=== PATIENT | female | born 1940 | race Asian ===

== ENCOUNTER 2019-12-08 08:43 | Emergency (ER) | payer MEDICARE, SELFPAY ==
[2019-12-08 08:59] VITALS: BP 145/73; PULSE 83; RESP 16; TEMP 36.7; O2SAT 100; BMI 19.5
--- NOTE | 2019-12-08 09:05 | DI.RAD.S_ITS ---
PROCEDURE: XR ANKLE RT MIN 3V INDICATIONS: ankle injury TECHNIQUE: 3 views of the ankle were acquired. COMPARISON: None. FINDINGS: Bones: No acute appearing fractures or dislocations. Remote appearing, well corticated fracture fragments are seen distal to the medial and lateral malleoli. Ankle mortise is normally aligned. No suspicious bony lesions. The talar dome demonstrates no lulu abnormality. Age-appropriate bony degenerative changes are seen. Plantar and Achilles calcaneal spurs are seen. Soft tissues: Medial soft tissue swelling is seen. IMPRESSION: Soft tissue swelling is seen, without an acute abnormality seen by plain film. If there is point tenderness (or other clinical suspicion for a fracture not seen on these images) then a dedicated CT or a short-term followup plain film series could be considered for further evaluation, as clinically appropriate. Degenerative changes are seen, including plantar and Achilles calcaneal spurs. Dictated by: Gilmar Taylor M.D. on 12/08/2019 at 8:28 Approved by: Gilmar Taylor M.D. on 12/08/2019 at 8:30
--- NOTE | 2019-12-08 09:13 | ED.LOWEXIN ---
HPI - Extremity Injury (Lower) General Chief Complaint: Extremity Injury, Lower Stated Complaint: PAIN IN RT ANKLE/SWELLING Time Seen by Provider: 12/08/19 08:59 Source: patient and family Mode of arrival: Ambulatory History of Present Illness HPI Narrative: Patient is a 79-year-old female who presents with right ankle pain and swelling. It has been ongoing for last 3 days she is unsure of exact injury but thinks she may have twisted it. The pain has gotten quite severe and she is unable to ambulate now. She has taken Tylenol for pain relief but has not gotten any. complaint: ankle injury Related Data Home Medications Medication Instructions Recorded Confirmed Co Q-10 12/08/19 Allergies Allergy/AdvReac Type Severity Reaction Status Date / Time No Known Drug Allergies Allergy Verified 12/08/19 09:19 Review of Systems Review of Systems Narrative: GENERAL: Denies chills,fever HEENT: Denies throat pain RESPIRATORY: Denies dyspnea, cough, wheezing CARDIOVASCULAR: Denies chest pain, palpitations GASTROINTESTINAL: Denies nausea, vomiting MUSCULOSKELETAL: See HPI SKIN: No rash, no laceration, no pruritus NEUROLOGIC: Denies weakness, dizziness, headache, numbness 8 point review of systems is negative except for those stated above and HPI Patient History Social History Smoking Status: Former smoker Smoking Status: Former smoker alcohol intake frequency: a few times a month Substance Use Type: does not use Exam Initial Vital Signs Initial Vital Signs: Vital Signs Temperature 98.1 F 12/08/19 08:59 Pulse Rate 83 12/08/19 08:59 Respiratory Rate 16 12/08/19 08:59 Blood Pressure 145/73 H 12/08/19 08:59 Pulse Oximetry 100 12/08/19 08:59 GENERAL: Thin elderly female CARDIOVASCULAR: peripheral pulses in tact, cap refill <2 sec RESPIRATORY: No respiratory distress, speaks in full sentences without difficulty EXTREMITIES: Normal range of motion, no clubbing or edema. Neurovascularly intact Right lower extremity swelling over ankle able to flex and extend distal pedal pulse intact no erythema NEUROLOGICAL: Cranial nerves II through XII grossly intact. Normal gait and speech. SKIN: Warm, dry, no petechiae, no rashes or lesions. Course Orders Ordered: Discontinued Medications Ketorolac Tromethamine (Toradol) 30 mg IM NOW ONE Stop: 12/08/19 09:14 Last Admin: 12/08/19 09:23 Dose: 30 mg Documented by: LLOYD Vital Signs Vital signs: Vital Signs - 8 hr 12/08/19 08:59 Temperature 98.1 F Pulse Rate 83 Respiratory Rate 16 Blood Pressure 145/73 H Pulse Oximetry 100 MDM - Extremity Injury (Lower) Imaging Data Extremity x-ray #1: Radiologist's Impression: PROCEDURE: XR ANKLE RT MIN 3V INDICATIONS: ankle injury TECHNIQUE: 3 views of the ankle were acquired. COMPARISON: None. FINDINGS: Bones: No acute appearing fractures or dislocations. Remote appearing, well corticated fracture fragments are seen distal to the medial and lateral malleoli. Ankle mortise is normally aligned. No suspicious bony lesions. The talar dome demonstrates no lulu abnormality. Age-appropriate bony degenerative changes are seen. Plantar and Achilles calcaneal spurs are seen. Soft tissues: Medial soft tissue swelling is seen. IMPRESSION: Soft tissue swelling is seen, without an acute abnormality seen by plain film. If there is point tenderness (or other clinical suspicion for a fracture not seen on these images) then a dedicated CT or a short-term followup plain film series could be considered for further evaluation, as clinically appropriate. Degenerative changes are seen, including plantar and Achilles calcaneal spurs. Dictated by: Gilmar Taylor M.D. on 12/08/2019 at 8:28 Approved by: Gilmar Taylor M.D. on 12/08/2019 at 8:30 Discharge Plan Departure Patient Disposition: Home Clinical Impression: Right ankle sprain Qualifiers: Encounter type: initial encounter Involved ligament of ankle: other ligament Qualified Code(s): S93.491A - Sprain of other ligament of right ankle, initial encounter Discharge Date/Time: 12/08/19 10:08 Instructions: DI for Ankle Sprain Activity Restrictions/Additional Instructions: *You have been diagnosed with right ankle sprain *What to do: elevate, ice 20-30 minutes at time, use walker as needed to get around *Continue to take medications as directed motrin 600mg every 6 hours if needed for pain *Follow up with your primary care provider in 2-3 days *Return to ER if you should have worsening pain, redness, weaknesss, or any new, worsening or concerning symptoms Prescriptions: No Action Co Q-10 RF: 0 Referrals: Nichole Benoit MD [Primary Care Provider] -
[2019-12-08] MEDS: KETOROLAC 60 MG/2 ML VIAL 30 MG IM (09:23)
--- NOTE | 2019-12-08 10:07 | PC.NURSE ---
Patient given a walker to take home.
== END 2019-12-08 10:08 | disposition home or self-care (01) ==
PROVIDERS: Emergency Provider Emergency Medicine; Family Provider Internal Medicine; PCP Internal Medicine
DX: S93.491A Sprain of other ligament of right ankle, initial encounter (principal)
CPT/HCPCS: 73610; 96372; 99283; J1885

== ENCOUNTER 2019-12-10 16:37 | Emergency (ER) | payer MEDICARE, SELFPAY ==
[2019-12-10 16:47] VITALS: BP 151/70; PULSE 93; RESP 17; TEMP 38.8; O2SAT 97; BMI 19.5
[2019-12-10 18:16] VITALS: PULSE 92; O2SAT 95
[2019-12-10 18:28] LABS: Add Manual Diff / Slide Review NO; Basophils Absolute Auto 0 /uL (0-100); Basophils Percent Auto 0.4 % (0-2); Eosinophils Absolute Auto 0 /uL (0-450); Eosinophils Percent Auto 0.2 % (2-4); Hematocrit 32.9 % (36-46); Hemoglobin 11.1 g/dL (12.0-16.0); Lymphocytes Absolute Auto 1200 /uL (1100-4500); Lymphocytes Percent Auto 12.3 % (25-40); Mean Corpuscular HGB Conc 33.6 % (30-36); Mean Corpuscular Hemoglobin 33.1 PG (26-34); Mean Corpuscular Volume 98.4 fL (80-100); Monocytes Absolute Auto 700 /uL (0-900); Monocytes Percent Auto 7.8 % (3-14); Neutrophils Absolute Auto 7600 /uL (1500-7000); Neutrophils Percent Auto 79.3 % (50-75); Platelet Count 288 X10^3/uL (150-400); Red Blood Cell Count 3.34 X10^6/uL (4.0-5.2); Red Cell Distribution Width 13.1 % (11.6-14.8); White Blood Cell Count 9.6 X10^3/uL (4.5-11.0)
[2019-12-10 18:30] VITALS: BP 159/71; PULSE 83; O2SAT 99
[2019-12-10 18:34] LABS: Lactate (Lactic Acid) 1.2 mmol/L (0.7-2.1)
[2019-12-10 18:36] LABS: Alanine Aminotransferase 19 IU/L (<35); Albumin 4.1 g/dL (3.5-5.0); Alkaline Phosphatase 146 U/L (38-126); Aspartate Aminotransferase 40 IU/L (14-36); BUN Creatinine Ratio 18.9 (6-22); Bilirubin Total 0.9 mg/dL (0.2-1.3); Blood Urea Nitrogen 17 mg/dL (7-17); Calcium 9.1 mg/dL (8.4-10.2); Carbon Dioxide 25 mmol/L (22-32); Chloride 103 mmol/L (98-107); Estimated Glomerular Filt Rate > 60.0 mL/min (>60); Glucose 130 mg/dL (80-110); HEMOLYSIS 22 (0-50); Potassium 4.2 mmol/L (3.4-5.1); Sodium 137 mmol/L (137-145); Total Protein 8.1 g/dL (6.3-8.2); Uric Acid 8.3 mg/dL (2.5-6.2)
[2019-12-10] MEDS: KETOROLAC 60 MG/2 ML VIAL 15 MG IV (18:53)
[2019-12-10] MEDS: SODIUM CHLORIDE 0.9% 500 ML 1000 ML IV (18:53)
[2019-12-10 18:58] LABS: Erythrocyte Sedimentation Rate 66 MM/HR (0-20)
[2019-12-10 19:07] LABS: C-Reactive Protein Quant 13.1 mg/dL (<1.0)
--- NOTE | 2019-12-10 19:12 | ED.EXTPRO ---
HPI - Extremity Problem <Xu Lam [facility] - Last Filed: 12/10/19 19:43> General Chief complaint: Extremity Problem,Nontraumatic Stated complaint: 12/09 Ssprain rt ankle/not getting better/ high tem Time Seen by Provider: 12/10/19 18:09 Source: patient and family Mode of arrival: Wheelchair Limitations: no limitations History of Present Illness HPI Narrative: This is a 79-year-old female, former smoker, has history of gout, arthritis and osteoporosis presents to ED with significant other with chief complain of right ankle pain, swelling, warmth. Patient was here in ED 2 days ago with same chief complain and was evaluated and had x-ray test done. Patient was discharged to home with ankle sprain since there is no dislocation were appreciated at that time. Patient has history of gout and currently is not taking allopurinol for last 2 years after it ran out. Patient denies having gout attacks in her ankle in the past. Patient reports difficult time walking on affected foot. Patient reports feeling hot and chills at home. She denies changes in diet and usually she has rice and fish and denies having alcohol drinks. Patient reports she has an appointment with Dr. Benoit primary care physician this coming . Related Data Home Medications Medication Instructions Recorded Confirmed Co Q-10 12/08/19 allopurinol 12/10/19 Previous Rx's Medication Instructions Recorded colchicine 0.6 mg PO .once to BID PRN #14 cap 12/10/19 Allergies Allergy/AdvReac Type Severity Reaction Status Date / Time No Known Drug Allergies Allergy Verified 12/08/19 09:19 Review of Systems <Xu Lam [facility] - Last Filed: 12/10/19 19:43> Review of Systems Narrative: General: Denies fever, chills, fatigue, malaise, sweats. HEENT: Denies sinus pain, ear pain, sore throat, difficulty swallowing, dizziness. Respiratory: Denies dyspnea, cough, wheezing, hemoptysis, sputum. Cardiovascular: Denies chest pain, palpitations, orthopnea, edema. Gastrointestinal: Denies nausea, vomiting, abdominal pain, diarrhea, constipation, melena. : Denies dysuria, frequency, incontinence, hematuria, urinary retention. Musculoskeletal: Denies weakness, joint pain or bony pain. Skin: Denies rash, skin lesions, or other. Neurologic: Denies weakness, headache, numbness, change in speech, confusion, seizures, incoordination. Psychiatric: No concerning psychosocial issues. 12-point review of systems is negative except for those stated above. Patient History <SALVADOR Milligan - Last Filed: 12/10/19 19:43> Medical History Arthritis (Acute) Gout (Acute) Osteoporosis (Acute) Surgical History History of cataract surgery (Acute) Social History Smoking Status: Former smoker Smoking Status: Former smoker alcohol intake frequency: a few times a month Substance Use Type: does not use Exam <SALVADOR Milligan - Last Filed: 12/10/19 19:43> Narrative Exam Narrative: GEN: Alert, oriented x 3, well appearing and nourished, and moderate distress. Head: Normal cephalic, atraumatic. No scalp or temporal tenderness, palpable mass or rash. EYES: Pupils are equal, round, and reactive to light and accommodation. Extraocular muscles are intact bilaterally. There is no subconjunctival hemorrhage, exudate and sclera non-icteric. ENT: Hearing grossly intact. Nose without bleeding, purulent discharge or deviation. Facial sinuses nontender to palpate. Mucous membrane moist, no mucosal lesion. Throat without erythema, tonsillar hypertrophy or exudate. Uvula in midline, airway patent. Neck: Trachea in midline. No JVD, non-tender without lymphadenopathy. No masses or thyroid megaly. Supple, non-tender and no meningeal signs. CARDIAC: Normal regular rate and rhythm without murmurs, gallops, or rubs. No chest wall tenderness. No peripheral edema, cyanosis or pallor. Capillary refill is less than 2 seconds. RESPIRATORY: Lungs are clear to auscultate bilaterally. No cough, wheezes, rales, or rhonchi. No stridor, respiratory distress, increase work of breathing, or accessary muscle used. ABD: Abdomen soft, nontender and non-distended. No guarding or rebound tenderness to palpate. Bowel sounds are normal in all 4 quadrants. There is no palpable masses or organomegaly. SKIN: Warmth and redness to right ankle and foot. Warm, dry, normal color for patient. BACK: Nontender without deformity or crepitance. No flank tenderness. NEUROLOGICAL: Alert and oriented to place, time and person. Sensation and motor function intact bilaterally. No facial droops, dysphasia. PSYCHIATRIC: Good judgement and reason, without hallucinations, abnormal affect or abnormal behaviors during the examination. Patient is not suicidal. Initial Vital Signs Initial Vital Signs: Vital Signs Temperature 102 F H 12/10/19 16:47 Pulse Rate 93 H 12/10/19 16:47 Respiratory Rate 17 12/10/19 16:47 Blood Pressure 151/70 H 12/10/19 16:47 Pulse Oximetry 97 12/10/19 16:47 Extrem Right lower extremity: knee Details: normal to inspection; no tenderness and no swelling, lower leg Details: normal to inspection; no erythema and no tenderness, ankle Details: abnormal to inspection, tenderness, swelling, warmth and other (erythema) and foot Details: normal capillary refill, abnormal to inspection, tenderness, toes with normal ROM, warmth, edema, vascular exam Details: dorsalis pedis pulse present and normal capillary refill, motor-sensory exam Details: light-touch normal and other (erythema to foot and ankle); no laceration and no puncture wound <Quincy Holland MD - Last Filed: 12/11/19 03:57> Initial Vital Signs Initial Vital Signs: Vital Signs Temperature 102 F H 12/10/19 16:47 Pulse Rate 93 H 12/10/19 16:47 Respiratory Rate 17 12/10/19 16:47 Blood Pressure 151/70 H 12/10/19 16:47 Pulse Oximetry 97 12/10/19 16:47 Scores <KAYLEE MilliganP - Last Filed: 12/10/19 19:43> GCS [place] coma scale eye opening: Spontaneous [place] coma scale verbal response: Orientated [place] coma scale motor response: [place] commands [place] coma scale total score: 15 qSOFA Altered Mental Status (GCS <15): No Respiratory rate greater than/equal to 22: Yes Systolic blood pressure less than or equal to 100: No qSOFA Total: 1 0-1 Not High Risk 1-3 High risk Course <SALVADOR Milligan - Last Filed: 12/10/19 19:43> Orders Ordered: Discontinued Medications Colchicine (Colcrys) 1.2 mg PO NOW ONE Stop: 12/10/19 19:12 Last Admin: 12/10/19 19:26 Dose: 1.2 mg Documented by: ROCIO Sodium Chloride (Normal Saline 0.9%) 500 mls @ 1,000 mls/hr IV BOLUS ONE Stop: 12/10/19 18:50 Last Admin: 12/10/19 18:53 Dose: 1,000 mls/hr Documented by: ROCIO Ketorolac Tromethamine (Toradol) 15 mg IV NOW ONE Stop: 12/10/19 18:50 Last Admin: 12/10/19 18:53 Dose: 15 mg Documented by: ROCIO Vital Signs Vital signs: Vital Signs - 8 hr 12/10/19 16:47 12/10/19 18:16 12/10/19 18:30 Temperature 102 F H Pulse Rate 93 H 92 H 83 Respiratory Rate 17 Blood Pressure 151/70 H 159/71 H Pulse Oximetry 97 95 99 <Quincy Holland MD - Last Filed: 12/11/19 03:57> Orders Ordered: Discontinued Medications Colchicine (Colcrys) 1.2 mg PO NOW ONE Stop: 12/10/19 19:12 Last Admin: 12/10/19 19:26 Dose: 1.2 mg Documented by: ROCIO Sodium Chloride (Normal Saline 0.9%) 500 mls @ 1,000 mls/hr IV BOLUS ONE Stop: 12/10/19 18:50 Last Admin: 12/10/19 18:53 Dose: 1,000 mls/hr Documented by: ROCIO Ketorolac Tromethamine (Toradol) 15 mg IV NOW ONE Stop: 12/10/19 18:50 Last Admin: 12/10/19 18:53 Dose: 15 mg Documented by: ROCIO Vital Signs Vital signs: Vital Signs - 8 hr 12/10/19 16:47 12/10/19 18:16 12/10/19 18:30 Temperature 102 F H Pulse Rate 93 H 92 H 83 Respiratory Rate 17 Blood Pressure 151/70 H 159/71 H Pulse Oximetry 97 95 99 MDM - Extremity (Nontraumatic) <KAYLEE MilliganP - Last Filed: 12/10/19 19:43> Differential Diagnosis Differential diagnosis: Likely gout, cellulitis, deep vein thrombosis of lower extremity and other (Sprain, septic arthritis) Medical Records Attestation: I reviewed the patient's medical records. Lab Data Attestation: I reviewed the patient's lab results. Result diagrams: 12/10/19 17:30 12/10/19 17:30 Labs: Lab Results 12/10/19 12/10/19 12/10/19 Range/Units 17:30 17:30 17:30 WBC 9.6 (4.5-11.0) X10^3/uL RBC 3.34 L (4.0-5.2) X10^6/uL Hgb 11.1 L (12.0-16.0) g/dL Hct 32.9 L (36-46) % MCV 98.4 (80-100) fL MCH 33.1 (26-34) PG MCHC 33.6 (30-36) % RDW 13.1 (11.6-14.8) % Plt Count 288 (150-400) X10^3/uL Neut % (Auto) 79.3 H (50-75) % Lymph % (Auto) 12.3 L (25-40) % [place] % (Auto) 7.8 (3-14) % Eos % (Auto) 0.2 L (2-4) % Baso % (Auto) 0.4 (0-2) % Neut # (Auto) 7600 H (8305-3884) /uL Lymph # (Auto) 1200 (8220-4531) /uL [place] # (Auto) 700 (0-900) /uL Eos # (Auto) 0 (0-450) /uL Baso # (Auto) 0 (0-100) /uL ESR 66 H (0-20) MM/HR Sodium 137 (137-145) mmol/L Potassium 4.2 (3.4-5.1) mmol/L Chloride 103 (98-107) mmol/L Carbon Dioxide 25 (22-32) mmol/L BUN 17 (7-17) mg/dL Creatinine 0.90 (0.52-1.04) mg/dL Estimated GFR > 60.0 (>60) mL/min BUN/Creatinine Ratio 18.9 (6-22) Glucose 130 H (80-110) mg/dL Lactate 1.2 (0.7-2.1) mmol/L Uric Acid 8.3 H (2.5-6.2) mg/dL Calcium 9.1 (8.4-10.2) mg/dL Total Bilirubin 0.9 (0.2-1.3) mg/dL AST 40 H (14-36) IU/L ALT 19 (<35) IU/L Alkaline Phosphatase 146 H (38-126) U/L C-Reactive Protein 13.1 H (<1.0) mg/dL Total Protein 8.1 (6.3-8.2) g/dL Albumin 4.1 (3.5-5.0) g/dL Globulin 4.0 (1.7-4.1) g/dL Albumin/Globulin Ratio 1.0 (1.0-2.8) MDM Narrative Medical decision making narrative: This is a 79-year-old female return to ED with worsening right ankle pain with swelling and warmth after she was evaluated 2 days ago and was discharged to home with ankle sprain diagnosis. During triage it was noted elevated temperature of 102.0 F and during my exam noted patient had slight tachypnea. qSOFA score 1. Right ankle and foot appears to be edematous, warmth and erythematous with exquisite tenderness to palpate. Normal white count of 9.6 with slight neutrophil elevation of 79.3%. Normal lactic acid. Normal kidney function. Uric acid is elevated to 8.3. CRP is elevated to 13.1 with ESR of 66. Acute gout diagnosis rule indicates 5 points (31.2% prevalence of gout). Patient's temperature has improved before leaving emergency room. Patient was medicated with Ketolac, IV fluid, and colchicine 1.2 mg and discharged to home with additional colchicine. Patient's significant reports that had not refilled allopurinol last 2 years after it had ran out and she is fish and fish sauce frequently. Return precautions were discussed with patient and significant other and advised to follow-up with Dr. Benoit as scheduled this and to use [place] wrap and walker for ambulation. Patient verbalized understanding and agreement with treatment plan. <Quincy Holland MD - Last Filed: 12/11/19 03:57> Lab Data Labs: Lab Results 12/10/19 12/10/19 12/10/19 Range/Units 17:30 17:30 17:30 WBC 9.6 (4.5-11.0) X10^3/uL RBC 3.34 L (4.0-5.2) X10^6/uL Hgb 11.1 L (12.0-16.0) g/dL Hct 32.9 L (36-46) % MCV 98.4 (80-100) fL MCH 33.1 (26-34) PG MCHC 33.6 (30-36) % RDW 13.1 (11.6-14.8) % Plt Count 288 (150-400) X10^3/uL Neut % (Auto) 79.3 H (50-75) % Lymph % (Auto) 12.3 L (25-40) % [place] % (Auto) 7.8 (3-14) % Eos % (Auto) 0.2 L (2-4) % Baso % (Auto) 0.4 (0-2) % Neut # (Auto) 7600 H (1796-4696) /uL Lymph # (Auto) 1200 (9305-6182) /uL [place] # (Auto) 700 (0-900) /uL Eos # (Auto) 0 (0-450) /uL Baso # (Auto) 0 (0-100) /uL ESR 66 H (0-20) MM/HR Sodium 137 (137-145) mmol/L Potassium 4.2 (3.4-5.1) mmol/L Chloride 103 (98-107) mmol/L Carbon Dioxide 25 (22-32) mmol/L BUN 17 (7-17) mg/dL Creatinine 0.90 (0.52-1.04) mg/dL Estimated GFR > 60.0 (>60) mL/min BUN/Creatinine Ratio 18.9 (6-22) Glucose 130 H (80-110) mg/dL Lactate 1.2 (0.7-2.1) mmol/L Uric Acid 8.3 H (2.5-6.2) mg/dL Calcium 9.1 (8.4-10.2) mg/dL Total Bilirubin 0.9 (0.2-1.3) mg/dL AST 40 H (14-36) IU/L ALT 19 (<35) IU/L Alkaline Phosphatase 146 H (38-126) U/L C-Reactive Protein 13.1 H (<1.0) mg/dL Total Protein 8.1 (6.3-8.2) g/dL Albumin 4.1 (3.5-5.0) g/dL Globulin 4.0 (1.7-4.1) g/dL Albumin/Globulin Ratio 1.0 (1.0-2.8) Discharge Plan Departure Patient Disposition: Home Clinical Impression: Gout Qualifiers: Gout site: ankle Gout etiology: unspecified cause Chronicity: acute Laterality: right Qualified Code(s): M10.9 - Gout, unspecified Acute ankle pain Qualifiers: Laterality: right Qualified Code(s): M25.571 - Pain in right ankle and joints of right foot Discharge Date/Time: 12/10/19 19:52 Instructions: DI for Gout, DI for Ankle Pain Activity Restrictions/Additional Instructions: You have been diagnosed with [right ankle pain likely from gout attack. X-ray test that was done 2 days ago does not show acute findings. Today's blood test shows elevated uric acid of 8.3. No elevation in white count or lactate. Elevated ESR and CRP. Your received IV Toradol and colchicine in ED with IV fluid.]. What to do: *Take your medications as directed. Please use walker for ambulation and [place] wrap as needed for pain on her ankle that was provided to you 2 days ago. *Follow up with your primary care provider in 2-3 days, call for an appointment. Let them know you were seen in the ED and that we asked you to be seen in follow up. *Return to ED if you have any new, worsening, or concerning symptoms, such as [fever, chills, nausea, vomiting, chest pain, breathing difficulty, unable to tolerate fluids, worsening pain or any acute concerns]. Prescriptions: New colchicine 0.6 mg capsule 0.6 mg PO .once to BID PRN (Reason: gout pain) Qty: 14 RF: 0 No Action Co Q-10 RF: 0 allopurinol RF: 0 Referrals: Nichole Benoit MD [Primary Care Provider] - <Quincy Holland MD - Last Filed: 12/11/19 03:57> Cosign ED Attending Cosignature Attestation: I was immediately available in the department for consultation. This documentation has been reviewed and I agree with assessment and plan. Supervised by Quincy Holland MD
[2019-12-10] MEDS: COLCHICINE 0.6 MG TABLET 1.2 MG PO (19:26)
[2019-12-10 19:51] VITALS: BP 142/90; PULSE 89; RESP 18; TEMP 36.6; O2SAT 98
== END 2019-12-10 19:52 | disposition home or self-care (01) ==
PROVIDERS: Emergency Provider Nurse Practitioner Family; Family Provider Internal Medicine; PCP Internal Medicine
DX: M10.9 Gout, unspecified (principal); M25.571 Pain in right ankle and joints of right foot; R50.9 Fever, unspecified
CPT/HCPCS: 36415; 80053; 83605; 84550; 85025; 85651; 86140; 96374; 99284; J1885

== ENCOUNTER → 2019-12-18 14:33 | Outpatient (CLI) | payer MEDICARE, SELFPAY | PROVIDERS: Family Provider Internal Medicine; PCP Internal Medicine; Referring Provider Internal Medicine; Visit Provider Internal Medicine | DX: M81.0 Age-related osteoporosis without current pathological fracture (principal); Z78.0 Asymptomatic menopausal state | CPT/HCPCS: 77080 ==

== ENCOUNTER → 2019-12-22 07:44 | Outpatient (CLI) | payer MEDICARE, SELFPAY ==
[2019-12-22 08:55] LABS: Alanine Aminotransferase 15 IU/L (<35); Albumin Globulin Ratio 1.3 (1.0-2.8); Alkaline Phosphatase 128 U/L (38-126); Aspartate Aminotransferase 32 IU/L (14-36); BUN Creatinine Ratio 28.7 (6-22); Bilirubin Total 0.3 mg/dL (0.2-1.3); Blood Urea Nitrogen 27 mg/dL (7-17); Calcium 9.1 mg/dL (8.4-10.2); Carbon Dioxide 28 mmol/L (22-32); Chloride 105 mmol/L (98-107); Cholesterol 151 mg/dL (140-199); Estimated Glomerular Filt Rate 57.4 mL/min (>60); Globulin 3.2 g/dL (1.7-4.1); Glucose 106 mg/dL (80-110); HDL Cholesterol 35 mg/dL (40-60); HEMOLYSIS < 15 (0-50); LDL Cholesterol Calculated 67 mg/dL (<100); Potassium 4.3 mmol/L (3.4-5.1); Sodium 139 mmol/L (137-145); Total Protein 7.2 g/dL (6.3-8.2); Triglycerides 245 mg/dL (35-150)
[2019-12-22 09:08] LABS: Vitamin D 25 Hydroxy (D3) 42.8 ng/mL (30.0-100.0)
== END ==
PROVIDERS: Family Provider Internal Medicine; PCP Internal Medicine; Referring Provider Internal Medicine; Visit Provider Internal Medicine
DX: E78.5 Hyperlipidemia, unspecified (principal); M81.0 Age-related osteoporosis without current pathological fracture
CPT/HCPCS: 36415; 80053; 80061; 82306

== ENCOUNTER → 2023-01-19 09:20 | Outpatient (CLI) | payer MEDICARE, SELFPAY ==
--- NOTE | 2023-01-19 | DI.RAD.S_ITS ---
Bone Density Report Name: KASANDRA BAXTER Age: 82 Sex: Female Ethnicity: Date of : 1940 Indication: postmenopausal osteoporosis; monitoring treatment; Referring Provider: ROBERTA EASTON Study: Bone densitometry was performed. Exam Date: January 19, 2023 Accession number: [id number] Bone Density: Region BMD T-score Z-score Classification AP Spine(L1, L3, L4) 0.744 -2.8 0.0 Osteoporosis Femoral Neck (Left) 0.495 -3.2 -0.8 Osteoporosis Total Hip (Left) 0.521 -3.5 -1.3 Osteoporosis Femoral Neck (Right) 0.530 -2.9 -0.5 Osteoporosis Total Hip (Right) 0.606 -2.8 -0.6 Osteoporosis Total Hip Mean 0.563 -3.2 -1.0 Osteoporosis World Health Organization criteria for BMD impression classify patients as: Normal (T-score at or above -1.0), Osteopenia (T-score between -1.0 and -2.5), or Osteoporosis (T-score at or below -2.5). 10-year Fracture Risk: FRAX not reported because: Some T-score for Spine Total or Hip Total or Femoral Neck at or below -2.5 Treated for osteoporosis Previous Exams: -- Region Exam Age BMD T-score BMD Change BMD Change Date g/cm2 vs Baseline vs Previous -- AP Spine (L1,L3-L4) 01/19/2023 82 0.744 -2.8 -0.043 (-5.5%)# -0.043 (-5.5%)# 12/18/2019 79 0.787 -2.4 Total Hip(Left) 01/19/2023 82 0.521 -3.5 -0.036 (-6.5%)# -0.036 (-6.5%)# 12/18/2019 79 0.556 -3.2 Total Hip(Right) 01/19/2023 82 0.606 -2.8 0.060 (10.9%)# 0.060 (10.9%)# 12/18/2019 79 0.546 -3.2 -- *Denotes significance at 95% confidence level, LSC for AP Spine = 0.022 g/cm2, LSC for Total Hip = 0.027 g/cm2 # Denotes dissimilar scan types or analysis methods Impression: The patient has osteoporosis, based on the Left Total Hip T-score. No significant bone loss was observed. Discussion: PATIENT UNDER TREATMENT WITH NO SIGNIFICANT BMD LOSS SINCE LAST EXAM. In an untreated patient, BMD typically declines with age. A lack of decline or gain is usually a sign that treatment is efficacious and fracture risk is reduced. It is important to ask patients whether they are taking their medications and to encourage continued and appropriate compliance with their osteoporosis therapies to reduce fracture risk. It is also important to review their risk factors and encourage appropriate calcium and vitamin D intakes, exercise, fall prevention and other lifestyle measures. Follow-Up: Consider a repeat BMD and Vertebral Fracture Assessment (VFA) exam in 2 years or sooner if medically necessary, to reassess this patient's status. Reported by: THERON WALL M.D on 01/19/2023 9:44:00 AM.
== END ==
PROVIDERS: PCP Internal Medicine; Referring Provider Internal Medicine; Visit Provider Internal Medicine
DX: M81.0 Age-related osteoporosis without current pathological fracture (principal)
CPT/HCPCS: 77080

== ENCOUNTER 2023-06-23 09:56 | Emergency (ER) | payer MEDICARE, SELFPAY ==
[2023-06-23 10:03] VITALS: BP 126/67; PULSE 86; RESP 18; TEMP 36.9; O2SAT 98; BMI 19.1
[2023-06-23 10:59] LABS: Adenovirus Not Detected (Not Detect); B. parapertussis Not Detected (Not Detecte); Bordetella pertussis Not Detected (Not Detect); Chlamydophila pneumoniae Not Detected (Not Detect); Coronavirus 229E Not Detected (Not Detect); Coronavirus HKU1 Not Detected (Not Detect); Coronavirus NL 63 Not Detected (Not Detect); Coronavirus OC43 Not Detected (Not Detect); Human Metapneumovirus Not Detected (Not Detect); Human Rhinovirus/Enterovirus Not Detected (Not Detect); Influenza A Not Detected (Not Detect); Influenza B Not Detected (Not Detect); Mycoplasma pneumoniae Not Detected (Not Detect); Parainfluenza Virus 1 Not Detected (Not Detect); Parainfluenza Virus 2 Not Detected (Not Detect); Parainfluenza Virus 3 Not Detected (Not Detect); Parainfluenza Virus 4 Not Detected (Not Detect); Respiratory Syncytial Virus Not Detected (Not Detect); SARS- CoV-2 Not Detected (Not Detecte)
--- NOTE | 2023-06-23 11:40 | ED_ITS ---
HPI - URI/Sore Throat <Nereida Peguero PA-C - Last Filed: 06/23/23 19:06> General Chief Complaint: Upper Respiratory Symptoms Stated Complaint: cough, loosing her voice Time Seen by Provider: 06/23/23 11:06 Source: patient Mode of arrival: Ambulatory History of Present Illness HPI Narrative: 82-year-old generally healthy female presents with her with concern for cough for about a week and loss of voice for 3 days. Patient states it has been difficult sleeping due to the persistent mostly dry cough. She says her symptoms started with a sore throat and then it progressed to coughing and the sore throat went away. She denies any congestion runny nose, headaches or chills she did have a low-grade fever about 3 days ago which her says went away with Tylenol. She says she has been feeling her normal energy level, has not had any productive cough, vomiting, diarrhea, ear pain, chest pain, shortness of breath, pain with breathing dizziness lightheadedness or any other symptoms. They have tried vapor rub on the chest and no other sxci-swp-[id number] medications. Related Data Home Medications Medication Instructions Recorded Confirmed Co Q-10 12/08/19 allopurinol 12/10/19 Previous Rx's Medication Instructions Recorded colchicine 0.6 mg capsule 0.6 mg PO .once to BID PRN gout 12/10/19 pain #14 caps benzonatate 100 mg capsule 100 mg PO TID cough 10 days #30 06/23/23 caps codeine 10 mg-guaifenesin 100 mg/5 5 ml PO Q6H PRN cough 7 days #120 06/23/23 mL oral liquid mL doxycycline hyclate 100 mg capsule 100 mg PO BID 7 days #14 caps 06/23/23 Allergies Allergy/AdvReac Type Severity Reaction Status Date / Time No Known Drug Allergies Allergy Verified 06/23/23 10:03 Review of Systems <Nereida Peguero PA-C - Last Filed: 06/23/23 19:06> Review of Systems Narrative: See HPI Patient History <Nereida Peguero PA-C - Last Filed: 06/23/23 19:06> Medical History (Updated 06/23/23 @ 12:33 by Nereida Peguero PA-C) Gout Arthritis Osteoporosis Surgical History History of cataract surgery Social History Smoking Status: Former smoker Smoking Status: Former smoker alcohol intake frequency: holidays/special occasions only Substance Use Type: does not use Exam <Nereida Peguero PA-C - Last Filed: 06/23/23 19:06> Narrative Exam Narrative: GENERAL: [82] year old patient appears stated age. Well-developed patient, in mild distress. HEAD: Atraumatic. Normocephalic. EYES: Pupils equal round and reactive. Extraocular motions intact. No scleral icterus. No injection or drainage. ENT: Nose without bleeding, purulent drainage. Throat without erythema, tonsillar hypertrophy or exudate. Airway patent. Bilateral ear canals normal in appearance, the right TM is poorly visualized due to cerumen, the portion that is visualized is pearly young. The left TM is pearly young with cone of light visible. NECK: Trachea midline. Non tender CARDIOVASCULAR: Regular rate and rhythm without murmurs, gallops, or rubs. RESPIRATORY: Adventitious lung sounds on the right middle/lower. Moving air all mota. No wheezes, rales, or rhonchi. GASTROINTESTINAL: Abdomen nondistended. EXTREMITIES: No edema or joint tenderness. NEURO: AOx3. SKIN: No rash or erythema of visible areas Initial Vital Signs Initial Vital Signs: Vital Signs Temperature 98.4 F 06/23/23 10:03 Pulse Rate 86 06/23/23 10:03 Respiratory Rate 18 06/23/23 10:03 Blood Pressure 126/67 06/23/23 10:03 Pulse Oximetry 98 06/23/23 10:03 Oxygen Delivery Method Room Air 06/23/23 10:03 <Quincy Holland MD - Last Filed: 06/26/23 19:24> Initial Vital Signs Initial Vital Signs: Vital Signs Temperature 98.4 F 06/23/23 10:03 Pulse Rate 86 06/23/23 10:03 Respiratory Rate 18 06/23/23 10:03 Blood Pressure 126/67 06/23/23 10:03 Pulse Oximetry 98 06/23/23 10:03 Oxygen Delivery Method Room Air 06/23/23 10:03 Course <Nereida Peguero PA-C - Last Filed: 06/23/23 19:06> Orders Ordered: Discontinued Medications Benzonatate (Benzonatate 100 Mg Capsule) 100 mg PO NOW ONE Stop: 06/23/23 11:41 Last Admin: 06/23/23 11:46 Dose: 100 mg Documented By: LUCIAN Vital Signs Vital signs: Vital Signs - 8 hr 06/23/23 12:27 Temperature 98.7 F Pulse Rate 85 Blood Pressure 135/63 Pulse Oximetry 96 Oxygen Delivery Method Room Air <Quincy Holland MD - Last Filed: 06/26/23 19:24> Orders Ordered: Discontinued Medications Benzonatate (Benzonatate 100 Mg Capsule) 100 mg PO NOW ONE Stop: 06/23/23 11:41 Last Admin: 06/23/23 11:46 Dose: 100 mg Documented By: LUCIAN Vital Signs Vital signs: Vital Signs - 8 hr 06/23/23 12:27 Temperature 98.7 F Pulse Rate 85 Blood Pressure 135/63 Pulse Oximetry 96 Oxygen Delivery Method Room Air MDM - URI/Sore Throat <Nereida Peguero PA-C - Last Filed: 06/23/23 19:06> Differential Diagnosis Differential diagnosis: Likely upper respiratory infection, viral infection and bronchitis Medical Records Attestation: I reviewed the patient's medical records. Lab Data Attestation: I reviewed the patient's lab results. Labs: Lab Results 06/23/23 Range/Units 10:06 Chlamy pneumoniae PCR Not detected (Not Detect) Adenovirus (PCR) Not detected (Not Detect) B.parapertussis DNA PCR Not detected (Not Detecte) Coronavirus OC43 (PCR) Not detected (Not Detect) Coronavirus HKU1 (PCR) Not detected (Not Detect) Coronavirus 229E (PCR) Not detected (Not Detect) SARS-CoV-2 (PCR) Not detected (Not Detecte) Coronavirus NL63 (PCR) Not detected (Not Detect) Human Metapneumovir PCR Not detected (Not Detect) Influenza Type A (PCR) Not detected (Not Detect) Influenza Type B (PCR) Not detected (Not Detect) M. pneumoniae (PCR) Not detected (Not Detect) Parainfluenza 1 (PCR) Not detected (Not Detect) Parainfluenza 2 (PCR) Not detected (Not Detect) Parainfluenza 3 (PCR) Not detected (Not Detect) Parainfluenza 4 (PCR) Not detected (Not Detect) RSV (PCR) Not detected (Not Detect) Entero/Rhino (PCR) Not detected (Not Detect) Imaging Data Chest x-ray: My Impression: agree with radiology interpretation Radiologist's Impression: [address] [address] XRay Report Signed Patient: Amy Ladd MR#: [id number] : 1940 Acct:[id number] Age/Sex: 82 / F Date of Service: 06/23/23 Loc: ED Accession Number: [id number] Procedure: XR chest 1V Ordering Provider: Nereida Peguero P.A-C PROCEDURE: XR CHEST 1V INDICATIONS: diminished lung sounds on right low lobe TECHNIQUE: One view of the chest was acquired. COMPARISON: [facility], , CHEST 1 VIEW, 07/13/2015, 19:25. FINDINGS: Surgical changes and devices: None. Lungs and pleura: Lungs are clear. No pleural effusions or pneumothorax. Mediastinum: Mediastinal contours appear normal. Heart size is normal. Bones and chest wall: No suspicious bony lesions. Overlying soft tissues appear unremarkable. IMPRESSION: No acute cardiopulmonary abnormality is seen. Dictated by: Sarita Denton M.D. on 06/23/2023 at 12:14 Approved by: Sarita Denton M.D. on 06/23/2023 at 12:14 [facility] Narrative Medical decision making narrative: Is a fairly healthy 82-year-old woman who presents with her with concern for worsening cough for the past week with loss of voice and episode of fevers in the last few days resolve with Tylenol. Chest x-ray is obtained as well as viral testing. Both of these returned without evidence of pneumonia or viral illness. Patient is generally well-appearing with vitals that do not suggest sepsis. However given her recent fever and age as well as her worsening cough I do feel it is appropriate to place her on antibiotics. Prescription today for cough medicine benzonatate and codeine guaifenesin as well as doxycycline antibiotic. Return precautions provided, follow-up plan discussed, all questions answered. <Quincy Holland MD - Last Filed: 06/26/23 19:24> Lab Data Labs: Lab Results 06/23/23 Range/Units 10:06 Chlamy pneumoniae PCR Not detected (Not Detect) Adenovirus (PCR) Not detected (Not Detect) B.parapertussis DNA PCR Not detected (Not Detecte) Coronavirus OC43 (PCR) Not detected (Not Detect) Coronavirus HKU1 (PCR) Not detected (Not Detect) Coronavirus 229E (PCR) Not detected (Not Detect) SARS-CoV-2 (PCR) Not detected (Not Detecte) Coronavirus NL63 (PCR) Not detected (Not Detect) Human Metapneumovir PCR Not detected (Not Detect) Influenza Type A (PCR) Not detected (Not Detect) Influenza Type B (PCR) Not detected (Not Detect) M. pneumoniae (PCR) Not detected (Not Detect) Parainfluenza 1 (PCR) Not detected (Not Detect) Parainfluenza 2 (PCR) Not detected (Not Detect) Parainfluenza 3 (PCR) Not detected (Not Detect) Parainfluenza 4 (PCR) Not detected (Not Detect) RSV (PCR) Not detected (Not Detect) Entero/Rhino (PCR) Not detected (Not Detect) Discharge Plan Departure Patient Disposition: Home Clinical Impression: Atypical pneumonia, Laryngitis Cough Qualifiers: Cough type: acute Qualified Code(s): R05.1 - Acute cough Activity Restrictions/Additional Instructions: *You have been diagnosed with [cough, laryngitis, possibly pneumonia] *What to do: *Please continue to take your regular medications as directed. [ 3] New medication prescriptions sent to your pharmacy: [Benzonatate for cough, codeine guaifenesin for cough, doxycycline antibiotic for possible pneumonia] [ ] New medication written as a paper prescription [ ] No new medications given *Please follow up with your primary care provider in 2-3 days, call for an appointment. Let them know you were seen in the Emergency Department and that we ask that you be seen in follow up. We will electronically transmit a record of today's note if your PCP is in our system. You have had a cough for the past week that has been worsening and recently lost her voice, you also had fevers a few days ago and I am concerned that you may have a pneumonia your chest x-ray actually looked okay today per Radiology but given her age and symptoms I think it is best to go ahead and do a course of antibiotics. This was prescribed today. I also prescribed 2 medications to help with your cough, benzonatate and also codeine with guaifenesin. Please only try to use the ladder medication if needed to control your coughing if the benzonatate does not work. For your laryngitis minimize talking and use of your voice you can try warm teas or tea with lemon and see if this helps some with your symptoms. You develop new or worsening symptoms please make sure you get re-evaluated immediately otherwise please follow up with your primary care provider. *If you do not have a primary care provider please contact the [facility] Resource line at [phone]. They will ask some questions about your medical history and help get you set up with a doctor in the community. *Return to Emergency Department if you should have any new, worsening or concerning symptoms, such as [fever greater than 101 F, shaking chills, worsening pain, persistent vomiting or other bothersome symptoms] Prescriptions: New doxycycline hyclate 100 mg capsule 100 mg PO BID 7 Days Qty: 14 0RF benzonatate 100 mg capsule 100 mg PO TID 10 Days Qty: 30 0RF codeine-guaifenesin 10-100 mg/5 mL liquid 5 ml PO Q6H PRN (Reason: cough) 7 Days Qty: 120 0RF No Action Co Q-10 allopurinol Patient Comments: Ran out 2 years ago colchicine 0.6 mg capsule 0.6 mg PO .once to BID PRN (Reason: gout pain) Qty: 14 0RF Referrals: Nichole Benoit MD [Primary Care Provider] - Stand Alone Forms: Patient Portal/API ED Sign-out <Quincy Holland MD - Last Filed: 06/26/23 19:24> Cosign ED Attending Rodger Attestation: I was immediately available in the department for consultation. ?This documentation has been reviewed and I agree with assessment and plan. Supervised by Quincy Holland MD
[2023-06-23] MEDS: BENZONATATE 100 MG CAPSULE PO (11:46)
[2023-06-23 12:27] VITALS: BP 135/63; PULSE 85; TEMP 37.1; O2SAT 96
== END 2023-06-23 12:39 | disposition home or self-care (01) ==
PROVIDERS: Emergency Medicine; Emergency Provider Student in an Organized Health Care Education/Training Program; PCP Internal Medicine
DX: J18.9 Pneumonia, unspecified organism (principal); J04.0 Acute laryngitis; R05.1 Acute cough; Z20.822 Contact with and (suspected) exposure to COVID-19
CPT/HCPCS: 71045; 87633; 99283

== ENCOUNTER 2023-10-23 21:52 | Emergency (ER) | payer MEDICARE, SELFPAY ==
[2023-10-23 22:01] VITALS: O2SAT 100
[2023-10-23 22:02] VITALS: BP 176/83; PULSE 88; O2SAT 99
[2023-10-23 22:03] VITALS: BP 176/84; PULSE 90; RESP 20; TEMP 36.8; O2SAT 98; BMI 17.9
--- NOTE | 2023-10-23 22:09 | ED_ITS ---
HPI - Nausea/Vomiting/Diarrhea General Chief complaint: Nausea/Vomiting/Diarrhea Stated complaint: Dizzy, Vomitting, Nausea Time Seen by Provider: 10/23/23 22:07 Source: patient and family Mode of arrival: Wheelchair History of Present Illness HPI Narrative: 83-year-old female with nausea and vomiting earlier this evening, single event, no black or red color to her emesis, with some dizziness after emesis. She had no associated chest pain or shortness of breath, no neck or jaw pain, no arm pain or back pain. She also denies headache, neck pain, photophobia. No abdominal discomfort, no flank pain, no dysuria or frequency of urination. She does not usually suffer from episodes of vomiting. No close contacts to persons with similar symptoms. No foul tasting food, or others who ate same foods who have similar symptoms. Related Data Home Medications Medication Instructions Recorded Confirmed Co Q-10 12/08/19 allopurinol 12/10/19 Previous Rx's Medication Instructions Recorded colchicine 0.6 mg capsule 0.6 mg PO .once to BID PRN gout 12/10/19 pain #14 caps Allergies Allergy/AdvReac Type Severity Reaction Status Date / Time No Known Drug Allergies Allergy Verified 06/23/23 10:03 Review of Systems Review of Systems Narrative: Per HPI Patient History Medical History (Updated 10/23/23 @ 23:19 by Wicho Lewis MD) Gout Arthritis Osteoporosis Surgical History History of cataract surgery Social History Smoking Status: Former smoker Smoking Status: Former smoker alcohol intake frequency: holidays/special occasions only Substance Use Type: does not use Exam Narrative Exam Narrative: GENERAL: Well-developed patient, in mild distress. HEAD: Atraumatic. Normocephalic. EYES: Pupils equal round and reactive. Extraocular motions intact. No scleral icterus. No injection or drainage. ENT: Nose without bleeding, purulent drainage. Throat without erythema, tonsillar hypertrophy or exudate. Airway patent. NECK: Trachea midline. Non tender CARDIOVASCULAR: Regular rate and rhythm without murmurs, gallops, or rubs. RESPIRATORY: Clear to auscultation. Breath sounds equal bilaterally. No wheezes, rales, or rhonchi. GASTROINTESTINAL: Abdomen soft, non-tender, nondistended. EXTREMITIES: No edema or joint tenderness. BACK: Nontender without deformity or crepitance. No flank tenderness. NEURO: AOx3. SKIN: No rash or erythema of visible areas Initial Vital Signs Initial Vital Signs: Vital Signs Pulse Oximetry 100 10/23/23 22:01 Course Orders Ordered: ED Orders 10/23/23 22:10 Complete Blood Count AUTO DIFF Stat Comprehensive Metabolic Panel Stat Lactate (Lactic Acid) Stat Lipase Stat Trop I [Troponin I] Stat 10/24/23 00:00 Urine Microscopic Stat 10/24/23 00:25 Troponin I Stat Discontinued Medications Sodium Chloride (Normal Saline 0.9%) 1,000 mls @ 1,000 mls/hr IV BOLUS ONE Stop: 10/23/23 23:07 Last Infusion: 10/24/23 00:37 Dose: Infused Documented By: Admin: 10/23/23 22:15 Dose: 1,000 mls/hr Documented By: LUCIAN Ondansetron HCl (Ondansetron 4 Mg/2 Ml Inj) 4 mg IV NOW PRN PRN Reason: Nausea And Vomiting Ondansetron HCl (Ondansetron 4 Mg Odt) 4 mg SL NOW PRN PRN Reason: Nausea And Vomiting Ondansetron HCl (Ondansetron 4 Mg/2 Ml Inj) 4 mg IV NOW ONE Stop: 10/23/23 22:11 Last Admin: 10/23/23 22:16 Dose: 4 mg Documented By: LUCIAN Vital Signs Vital signs: Vital Signs - 8 hr 10/23/23 22:01 10/23/23 22:02 10/23/23 22:02 Temperature Pulse Rate 88 Respiratory Rate Blood Pressure 176/83 H Pulse Oximetry 100 99 Oxygen Delivery Method 10/23/23 22:03 10/23/23 22:30 10/23/23 22:30 Temperature 98.3 F Pulse Rate 90 90 Respiratory Rate 20 18 Blood Pressure 176/84 H 166/77 H Pulse Oximetry 98 93 Oxygen Delivery Method Room Air 10/23/23 23:00 10/23/23 23:00 10/23/23 23:30 Temperature Pulse Rate 87 Respiratory Rate 17 Blood Pressure 142/72 H 159/76 H Pulse Oximetry 98 Oxygen Delivery Method 10/23/23 23:30 10/24/23 00:00 10/24/23 00:30 Temperature Pulse Rate 87 85 85 Respiratory Rate 25 H 18 24 Blood Pressure Pulse Oximetry 100 99 97 Oxygen Delivery Method 10/24/23 01:00 10/24/23 01:30 10/24/23 01:38 Temperature Pulse Rate 84 79 81 Respiratory Rate 23 23 22 Blood Pressure Pulse Oximetry 96 99 98 Oxygen Delivery Method Room Air 10/24/23 01:39 Temperature Pulse Rate Respiratory Rate Blood Pressure 152/86 H Pulse Oximetry Oxygen Delivery Method MDM - Nausea/Vomiting/Diarrhea Lab Data Attestation: I reviewed the patient's lab results. 10/23/23 22:10 10/23/23 22:10 Labs: Lab Results 10/23/23 10/24/23 10/24/23 Range/Units 22:10 00:00 00:25 WBC 5.6 (4.5-11.0) X10^3/uL RBC 3.34 L (4.0-5.2) X10^6/uL Hgb 11.7 L (12.0-16.0) g/dL Hct 34.2 L (36-46) % MCV 102.2 H (80-100) fL MCH 35.0 H (26-34) PG MCHC 34.2 (30-36) % RDW 14.3 (11.6-14.8) % Plt Count 190 (150-400) X10^3/uL Neut % (Auto) 48.1 L (50-75) % Lymph % (Auto) 34.3 (25-40) % [place] % (Auto) 7.9 (3-14) % Eos % (Auto) 8.5 H (2-4) % Baso % (Auto) 1.2 (0-2) % Neut # (Auto) 2700 (9736-3974) /uL Lymph # (Auto) 1900 (5752-7712) /uL [place] # (Auto) 400 (0-900) /uL Eos # (Auto) 500 H (0-450) /uL Baso # (Auto) 100 (0-100) /uL Sodium 135 L (137-145) mmol/L Potassium 4.3 (3.4-5.1) mmol/L Chloride 105 (98-107) mmol/L Carbon Dioxide 25 (22-32) mmol/L BUN 41 H (7-17) mg/dL Creatinine 1.61 H (0.52-1.04) mg/dL Estimated GFR 32 L (>60) mL/min BUN/Creatinine Ratio 25.5 H (6-22) Glucose 133 H (80-110) mg/dL Lactate 1.4 (0.7-2.1) mmol/L Calcium 8.9 (8.4-10.2) mg/dL Total Bilirubin 0.5 (0.2-1.3) mg/dL AST 29 (14-36) IU/L ALT 16 (<35) IU/L Alkaline Phosphatase 126 (38-126) U/L Troponin I 0.012 0.016 (0.01-0.034) ng/mL Total Protein 7.4 (6.3-8.2) g/dL Albumin 4.1 (3.5-5.0) g/dL Globulin 3.3 (1.7-4.1) g/dL Albumin/Globulin Ratio 1.2 (1.0-2.8) Lipase 83 (23-300) U/L Urine RBC 1-5/hpf (0-5/HPF) Urine WBC None seen (0-5/HPF) Ur Squamous Epith Cells 0-1 /hpf (0-5/HPF) Urine Bacteria None seen (None) Ur Culture Indicated? Cult not indicated Vol Urine Centrifuged 10ml (spun) Urine Dip Bedside Urine Glucose Negative Bedside Urine Bilirubin - Negative Bedside Urine Ketone - Negative Urine Specific [place] 1.010 Bedside Urine Occult Blood +/- Bedside Urine pH 6.5 Bedside Urine Protein - Negative Bedside Urine Urobilinogen - Negative Bedside Urine Nitrite - Negative Bedside Urine Leukocytes - Negative Esterase MDM Narrative Medical decision making narrative: 83-year-old female with single episode of resolved nausea with nonbloody emesis, she feels better now. No associated pain to head, neck, chest, abdomen, pelvis, flank. Screening EKG unremarkable, initial troponin negative. We will check interval repeat troponin. Urinalysis still pending. Other lab studies unremarkable. Nausea better after IV Zofran dose. No further dizziness. She did receive a IV L saline. Check interval troponin. Urinalysis negative. Repeat troponin also negative. Discharged home with family. Home pack Zofran ODT to use if needed Discharge Plan Departure Patient Disposition: Home Clinical Impression: Nausea & vomiting Activity Restrictions/Additional Instructions: Single episode of nausea with vomiting, symptoms resolved with Zofran antinausea medication. No pain on review of systems to head, chest, abdomen, flank, back. Screening labs unremarkable. EKG and serial blood tests not suggestive of heart attack as cause of recently resolved symptoms. No tenderness on abdominal exam. No obvious trauma on exam. Symptoms seemed to be better. Home pack of Zofran oral dissolvable tablets to use for nausea control if there is any recurrence of symptoms. Recheck symptoms with your regular doctor next couple of days. Return to this/nearest emergency department for any change worsening symptoms or any concerns prior Prescriptions: No Action Co Q-10 allopurinol Patient Comments: Ran out 2 years ago colchicine 0.6 mg capsule 0.6 mg PO .once to BID PRN (Reason: gout pain) Qty: 14 0RF Referrals: Nichole Benoit MD [Primary Care Provider] - Stand Alone Forms: Patient Portal/API
[2023-10-23] MEDS: SODIUM CHLORIDE 0.9% 1,000 ML 1000 ML IV (22:15)
[2023-10-23] MEDS: ONDANSETRON 4 MG/2 ML INJ IV (22:16)
--- NOTE | 2023-10-23 22:19 | PC.NURSE ---
patient complains of dizziness, nausea, and vomiting but her primary complaint is dizziness. She denies hx of veritgo. She states that she feels better after vomiting. denies sick contacts, and denies etoh use and recreational drug use
[2023-10-23 22:20] LABS: Add Manual Diff / Slide Review NO; Basophils Absolute Auto 100 /uL (0-100); Basophils Percent Auto 1.2 % (0-2); Eosinophils Absolute Auto 500 /uL (0-450); Eosinophils Percent Auto 8.5 % (2-4); Hematocrit 34.2 % (36-46); Hemoglobin 11.7 g/dL (12.0-16.0); Lymphocytes Absolute Auto 1900 /uL (1100-4500); Lymphocytes Percent Auto 34.3 % (25-40); Mean Corpuscular HGB Conc 34.2 % (30-36); Mean Corpuscular Volume 102.2 fL (80-100); Monocytes Absolute Auto 400 /uL (0-900); Monocytes Percent Auto 7.9 % (3-14); Neutrophils Absolute Auto 2700 /uL (1500-7000); Neutrophils Percent Auto 48.1 % (50-75); Platelet Count 190 X10^3/uL (150-400); Red Blood Cell Count 3.34 X10^6/uL (4.0-5.2); Red Cell Distribution Width 14.3 % (11.6-14.8); White Blood Cell Count 5.6 X10^3/uL (4.5-11.0)
[2023-10-23 22:30] VITALS: BP 166/77; PULSE 90; RESP 18; O2SAT 93
[2023-10-23 22:31] LABS: Lactate (Lactic Acid) 1.4 mmol/L (0.7-2.1)
[2023-10-23 22:32] LABS: Alanine Aminotransferase 16 IU/L (<35); Albumin 4.1 g/dL (3.5-5.0); Albumin Globulin Ratio 1.2 (1.0-2.8); Alkaline Phosphatase 126 U/L (38-126); Aspartate Aminotransferase 29 IU/L (14-36); BUN Creatinine Ratio 25.5 (6-22); Bilirubin Total 0.5 mg/dL (0.2-1.3); Blood Urea Nitrogen 41 mg/dL (7-17); Calcium 8.9 mg/dL (8.4-10.2); Carbon Dioxide 25 mmol/L (22-32); Chloride 105 mmol/L (98-107); Estimated Glomerular Filt Rate 32 mL/min (>60); Globulin 3.3 g/dL (1.7-4.1); Glucose 133 mg/dL (80-110); HEMOLYSIS < 15 (0-50); Lipase 83 U/L (23-300); Potassium 4.3 mmol/L (3.4-5.1); Sodium 135 mmol/L (137-145); Total Protein 7.4 g/dL (6.3-8.2)
[2023-10-23 22:49] LABS: Troponin I 0.012 ng/mL (0.01-0.034)
[2023-10-23 23:00] VITALS: BP 142/72; PULSE 87; RESP 17; O2SAT 98
[2023-10-23 23:30] VITALS: BP 159/76; PULSE 87; RESP 25; O2SAT 100
[2023-10-24] VITALS: PULSE 85; RESP 18; O2SAT 99
[2023-10-24 00:15] LABS: Bacteria Urine None Seen; Culture Indicated Urine Cult Not Indicated; RBC Urine 1-5/HPF (0-5/HPF); Squamous Epithelial Cell Urine 0-1 /HPF (0-5/HPF); Urine Volume 10mL (spun); WBC Urine None Seen (0-5/HPF)
[2023-10-24 00:30] VITALS: PULSE 85; RESP 24; O2SAT 97
[2023-10-24 00:54] LABS: Troponin I 0.016 ng/mL (0.01-0.034)
[2023-10-24 01:00] VITALS: PULSE 84; RESP 23; O2SAT 96
[2023-10-24 01:30] VITALS: PULSE 79; RESP 23; O2SAT 99
[2023-10-24 01:38] VITALS: PULSE 81; RESP 22; O2SAT 98
[2023-10-24 01:39] VITALS: BP 152/86
== END 2023-10-24 01:42 | disposition home or self-care (01) ==
PROVIDERS: Emergency Provider Emergency Medicine; PCP Internal Medicine
DX: R11.2 Nausea with vomiting, unspecified (principal); R03.0 Elevated blood-pressure reading, without diagnosis of hypertension
CPT/HCPCS: 36415; 80053; 81003; 81015; 83605; 83690; 84484; 85025; 96374; 99284; J2405